=== PATIENT | male | born 1955 | race Two or more races ===

== ENCOUNTER 2021-02-27 16:47 | Inpatient (IN) | payer MEDICAID, MEDICARE, OTHER ==
[~2021-02-27] VITALS: Ht 180.3 cm; Wt 111.0 kg
[2021-02-27] MEDS ORDERED: normal saline 1000ml 1,000 ML IV ONE (17:35)
[2021-02-27] MEDS ORDERED: dexamethasone sod phosphate 10mg/ml inj IV STA (18:11)
[2021-02-27 18:36] LABS: BASOPHILS % (AUTO) 0.4 % (0-1); EOSINOPHILS % (AUTO) 0 % (0-6); HEMATOCRIT 44.4 % (42.0-52.0); HEMOGLOBIN 15.1 g/dl (14.0-17.9); LYMPHOCYTES # (AUTO) 1.3 X10'3 (1.1-4.8); LYMPHOCYTES % (AUTO) 13.1 % (21-51); MEAN CORPUSCULAR HEMOGLOBIN 29.4 PG (27.0-31.0); MEAN CORPUSCULAR HGB CONC 33.9 g/dL (33.0-36.5); MEAN CORPUSCULAR VOLUME 86.9 FL (78-98); MEAN PLATELET VOLUME 7.9 FL (7.4-10.4); MONOCYTES # (AUTO) 0.5 X10'3 (0-0.9); MONOCYTES % (AUTO) 4.9 % (2-12); NEUTROPHILS % (AUTO) 81.6 % (42-75); PLATELET COUNT 411 X10'3 (140-440); RED BLOOD COUNT 5.11 X10'6 (4.70-6.10); RED CELL DISTRIBUTION WIDTH 13.5 % (11.5-14.5); WHITE BLOOD COUNT 9.8 X10'3 (4.5-11.0)
[2021-02-27 19:22] LABS: ALANINE AMINOTRANSFERASE 48 U/L (12-78); ALBUMIN 3.2 G/DL (3.4-5.0); ALBUMIN/GLOBULIN RATIO 0.7 (1.1-1.5); ALKALINE PHOSPHATASE 77 IU/L (46-116); ANION GAP 14 (8-16); ASPARTATE AMINO TRANSFERASE 57 U/L (10-37); BILIRUBIN,TOTAL 0.7 MG/DL (0.1-1.0); BLOOD UREA NITROGEN 21 MG/DL (7-18); BUN/CREATININE RATIO 15.1 (5.4-32.0); CALCIUM 8.6 MG/DL (8.5-10.1); CHLORIDE 97 MMOL/L (99-107); CREATININE 1.39 MG/DL (0.60-1.10); GLUCOSE 100 MG/DL (70-104); POTASSIUM 3.2 MMOL/L (3.5-5.1); SODIUM 136 MMOL/L (135-145); TOTAL CARBON DIOXIDE 24.8 MMOL/L (24-32); TOTAL PROTEIN 7.5 G/DL (6.4-8.2); eGFR 51 ML/MIN
[2021-02-27 19:53] LABS: C-REACTIVE PROTEIN 10.28 MG/DL (0.0-0.5); LACTATE DEHYDROGENASE 373 U/L (85-227)
[2021-02-27 19:54] LABS: FERRITIN 1538 NG/ML (26-388)
[2021-02-27] MEDS: normal saline 1000ml 1,000 ML IV SCH (21:40)
[2021-02-27] MEDS ORDERED: mag hydrox/Alum hydrox/simeth 30ml oral suspension PO PRN (21:40)
[2021-02-27] MEDS ORDERED: magnesium hydroxide 30ml (MOM) UD suspension PO PRN (21:40)
[2021-02-27] MEDS ORDERED: ondansetron/PF 4mg/2ml inj IV PRN (21:40)
[2021-02-27] MEDS ORDERED: potassium Cl 40MEQ/1/2NS 520ml 520 ML IV PRN ×2 (21:40)
[2021-02-27] MEDS ORDERED: potassium Cl 20 mEq SR tablet PO PRN (21:40)
[2021-02-27] MEDS ORDERED: acetaminophen 325mg tablet PO PRN (21:40)
[2021-02-27] MEDS ORDERED: AZIT-63 PO (22:42)
[2021-02-27] MEDS ORDERED: ZOLP5TAB8 PO (22:43)
[2021-02-27] MEDS ORDERED: HYDR200T84 PO (22:43)
[2021-02-27] MEDS: potassium Cl 20 mEq SR tablet PO PRN (22:52)
--- NOTE | 2021-02-27 23:45 | NUR ---
PT ARRIVED TO 4022A. PT AMBULATED TO BED WITH 1P ASSIST SEEMS WEAK. PT HAS BEEN ORIENTED TO THE ROOM. VSS. RECEIVED REPORT FROM MINA VALERO PRIOR TO PT'S ARRIVAL.
[2021-02-28] MEDS: guaiFENesin 200 MG/10 ML oral syrup UD cup PO PRN ×3 (00:24→22:11)
[2021-02-28] MEDS: zolpidem 5mg tablet PO PRN ×2 (00:36→23:31)
[2021-02-28] MEDS: HYDROcodone/acetaminophen 10/325mg tab PO PRN ×2 (00:37→23:31)
[2021-02-28 01:00] VITALS: BP 148/92
[2021-02-28] MEDS: dexamethasone 4mg/ml inj IV SCH ×4 (02:29→19:52)
[2021-02-28] MEDS: potassium Cl 20 mEq SR tablet PO PRN (02:29)
--- NOTE | 2021-02-28 06:24 | NUR ---
Problems reprioritized. Patient report given, questions answered & plan of care reviewed with MINA RICKETTS.
--- NOTE | 2021-02-28 06:25 | NUR ---
Patient in room [facility]TH[facility] 4022. I have received report from Codi ENRIQUEZ and had the opportunity to ask questions and assume patient care.
[2021-02-28 06:53] VITALS: BP 143/93
[2021-02-28] MEDS: morphine ER 15mg tablet PO SCH ×2 (07:59→19:52)
[2021-02-28] MEDS: docusate sod 100mg capsule PO SCH ×2 (07:59→20:00)
[2021-02-28] MEDS: K and/or MAG REPLACEMENT MC SCH ×2 (08:00→20:00)
[2021-02-28] MEDS ORDERED: heparin, porcine 5000 units/ml vial SQ SCH (08:00)
[2021-02-28 08:23] LABS: BASOPHILS % (AUTO) 0.2 % (0-1); EOSINOPHILS % (AUTO) 0 % (0-6); HEMATOCRIT 41.9 % (42.0-52.0); HEMOGLOBIN 14.3 g/dl (14.0-17.9); LYMPHOCYTES # (AUTO) 0.7 X10'3 (1.1-4.8); LYMPHOCYTES % (AUTO) 10.8 % (21-51); MEAN CORPUSCULAR HEMOGLOBIN 29.3 PG (27.0-31.0); MEAN CORPUSCULAR HGB CONC 34.1 g/dL (33.0-36.5); MEAN PLATELET VOLUME 8.5 FL (7.4-10.4); MONOCYTES # (AUTO) 0.2 X10'3 (0-0.9); MONOCYTES % (AUTO) 3.3 % (2-12); NEUTROPHILS # (AUTO) 5.2 X10'3 (1.8-7.7); NEUTROPHILS % (AUTO) 85.7 % (42-75); PLATELET COUNT 449 X10'3 (140-440); RED BLOOD COUNT 4.87 X10'6 (4.70-6.10); RED CELL DISTRIBUTION WIDTH 13.5 % (11.5-14.5); WHITE BLOOD COUNT 6.1 X10'3 (4.5-11.0)
[2021-02-28 08:55] LABS: ALANINE AMINOTRANSFERASE 52 U/L (12-78); ALBUMIN 2.8 G/DL (3.4-5.0); ALBUMIN/GLOBULIN RATIO 0.7 (1.1-1.5); ALKALINE PHOSPHATASE 73 IU/L (46-116); ANION GAP 12 (8-16); ASPARTATE AMINO TRANSFERASE 52 U/L (10-37); BILIRUBIN,TOTAL 0.6 MG/DL (0.1-1.0); BLOOD UREA NITROGEN 21 MG/DL (7-18); BUN/CREATININE RATIO 26.3 (5.4-32.0); CALCIUM 8.4 MG/DL (8.5-10.1); CHLORIDE 102 MMOL/L (99-107); GLUCOSE 120 MG/DL (70-104); POTASSIUM 4.5 MMOL/L (3.5-5.1); SODIUM 139 MMOL/L (135-145); TOTAL CARBON DIOXIDE 24.6 MMOL/L (24-32); TOTAL PROTEIN 7.1 G/DL (6.4-8.2); eGFR > 90 ML/MIN
[2021-02-28 09:49] LABS: D-DIMER 0.57 MG/L FEU (0-0.50)
[2021-02-28 10:55] VITALS: BP 155/90
[2021-02-28] MEDS ORDERED: REMDESIVIR INJ 200 MG in normal saline 100ml IV soln 60 ML IV ONE (13:45)
[2021-02-28 14:00] VITALS: BP 130/77
[2021-02-28] MEDS: normal saline 1000ml 1,000 ML IV SCH ×2 (14:22→20:00)
--- NOTE | 2021-02-28 18:30 | NUR ---
Received report from Nuvia, assumed care of pt.
--- NOTE | 2021-02-28 18:37 | NUR ---
Problems reprioritized. Patient report given, questions answered & plan of care reviewed with Nedra ENRIQUEZ.
[2021-02-28 18:53] VITALS: BP 155/90
[2021-02-28] MEDS: enoxaparin 40mg/0.4ml syringe SUBCUT SCH (19:52)
[2021-02-28 22:00] VITALS: BP 123/66
[2021-03-01 02:00] VITALS: BP 119/44
[2021-03-01] MEDS: dexamethasone 4mg/ml inj IV SCH ×4 (02:26→21:31)
[2021-03-01] MEDS: HYDROcodone/acetaminophen 10/325mg tab PO PRN ×3 (04:56→23:48)
--- NOTE | 2021-03-01 06:32 | NUR ---
Report to Rodolfo ENRIQUEZ.
--- NOTE | 2021-03-01 06:41 | NUR ---
Patient in room [facility]TH[facility] 4022. I have received report from Shana ENRIQUEZ and had the opportunity to ask questions and assume patient care. Addendum: 03/01/21 at 0643 by Orlando Corea RN report received by Nedra Saldana RN
[2021-03-01 06:46] VITALS: BP 134/85
[2021-03-01] MEDS: morphine ER 15mg tablet PO SCH ×2 (07:42→21:31)
[2021-03-01] MEDS: REMDESIVIR INJ 100 MG in normal saline 100ml IV soln 80 ML IV SCH (07:43)
[2021-03-01] MEDS: enoxaparin 40mg/0.4ml syringe SUBCUT SCH ×2 (07:43→21:31)
[2021-03-01] MEDS: docusate sod 100mg capsule PO SCH ×2 (07:49→21:31)
[2021-03-01] MEDS: K and/or MAG REPLACEMENT MC SCH ×2 (08:00→20:00)
[2021-03-01 09:02] LABS: BASOPHILS % (AUTO) 0.1 % (0-1); EOSINOPHILS % (AUTO) 0 % (0-6); HEMATOCRIT 40.8 % (42.0-52.0); HEMOGLOBIN 13.6 g/dl (14.0-17.9); LYMPHOCYTES # (AUTO) 1.4 X10'3 (1.1-4.8); LYMPHOCYTES % (AUTO) 8.5 % (21-51); MEAN CORPUSCULAR HEMOGLOBIN 29.2 PG (27.0-31.0); MEAN CORPUSCULAR HGB CONC 33.3 g/dL (33.0-36.5); MEAN CORPUSCULAR VOLUME 87.6 FL (78-98); MEAN PLATELET VOLUME 8.8 FL (7.4-10.4); MONOCYTES # (AUTO) 0.8 X10'3 (0-0.9); MONOCYTES % (AUTO) 4.8 % (2-12); NEUTROPHILS # (AUTO) 14.6 X10'3 (1.8-7.7); NEUTROPHILS % (AUTO) 86.6 % (42-75); PLATELET COUNT 517 X10'3 (140-440); RED BLOOD COUNT 4.66 X10'6 (4.70-6.10); RED CELL DISTRIBUTION WIDTH 13.2 % (11.5-14.5); WHITE BLOOD COUNT 16.8 X10'3 (4.5-11.0)
[2021-03-01 09:15] LABS: ALANINE AMINOTRANSFERASE 46 U/L (12-78); ALBUMIN 2.7 G/DL (3.4-5.0); ALBUMIN/GLOBULIN RATIO 0.7 (1.1-1.5); ALKALINE PHOSPHATASE 70 IU/L (46-116); ANION GAP 13 (8-16); ASPARTATE AMINO TRANSFERASE 41 U/L (10-37); BILIRUBIN,TOTAL 0.4 MG/DL (0.1-1.0); BLOOD UREA NITROGEN 20 MG/DL (7-18); CALCIUM 8.5 MG/DL (8.5-10.1); CHLORIDE 107 MMOL/L (99-107); CREATININE 0.74 MG/DL (0.60-1.10); GLUCOSE 135 MG/DL (70-104); POTASSIUM 4.3 MMOL/L (3.5-5.1); SODIUM 143 MMOL/L (135-145); TOTAL CARBON DIOXIDE 23.5 MMOL/L (24-32); TOTAL PROTEIN 6.7 G/DL (6.4-8.2); eGFR > 90 ML/MIN
[2021-03-01 10:52] VITALS: BP 139/73
[2021-03-01] MEDS: guaiFENesin 200 MG/10 ML oral syrup UD cup PO PRN (11:36)
[2021-03-01] MEDS: normal saline 1000ml 1,000 ML IV SCH (14:03)
[2021-03-01 14:52] VITALS: BP 142/72
[2021-03-01 18:00] VITALS: BP 142/74
--- NOTE | 2021-03-01 18:10 | NUR ---
Problems reprioritized. Patient report given, questions answered & plan of care reviewed with Sarina ENRIQUEZ.
--- NOTE | 2021-03-01 18:31 | NUR ---
Patient in room [facility]TH[facility] 4022. I have received report from Rodolfo ENRIQUEZ and had the opportunity to ask questions and assume patient care.
[2021-03-01] MEDS: zolpidem 5mg tablet PO PRN (21:31)
[2021-03-01 22:00] VITALS: BP 139/82
[2021-03-02] MEDS: guaiFENesin 200 MG/10 ML oral syrup UD cup PO PRN ×3 (01:01→20:42)
[2021-03-02 01:52] VITALS: BP 148/81
[2021-03-02] MEDS: dexamethasone 4mg/ml inj IV SCH ×4 (02:00→20:20)
[2021-03-02 06:00] VITALS: BP 155/83
--- NOTE | 2021-03-02 06:23 | NUR ---
Problems reprioritized. Patient report given, questions answered & plan of care reviewed with Nuvia ENRIQUEZ. Addendum: 03/02/21 at 0626 by Sarina Solis RN Report given to Ruth ENRIQUEZ
[2021-03-02 07:46] LABS: BASOPHILS # (AUTO) 0.1 X10'3 (0-0.2); BASOPHILS % (AUTO) 0.7 % (0-1); EOSINOPHILS % (AUTO) 0 % (0-6); HEMATOCRIT 38.2 % (42.0-52.0); HEMOGLOBIN 12.8 g/dl (14.0-17.9); LYMPHOCYTES # (AUTO) 1.3 X10'3 (1.1-4.8); LYMPHOCYTES % (AUTO) 7.9 % (21-51); MEAN CORPUSCULAR HEMOGLOBIN 29.4 PG (27.0-31.0); MEAN CORPUSCULAR HGB CONC 33.6 g/dL (33.0-36.5); MEAN CORPUSCULAR VOLUME 87.3 FL (78-98); MEAN PLATELET VOLUME 8.1 FL (7.4-10.4); MONOCYTES # (AUTO) 0.6 X10'3 (0-0.9); MONOCYTES % (AUTO) 3.6 % (2-12); NEUTROPHILS # (AUTO) 14.9 X10'3 (1.8-7.7); NEUTROPHILS % (AUTO) 87.8 % (42-75); PLATELET COUNT 553 X10'3 (140-440); RED BLOOD COUNT 4.37 X10'6 (4.70-6.10); RED CELL DISTRIBUTION WIDTH 13.2 % (11.5-14.5)
[2021-03-02] MEDS: morphine ER 15mg tablet PO SCH ×2 (07:55→20:19)
[2021-03-02] MEDS: docusate sod 100mg capsule PO SCH ×2 (07:55→20:19)
[2021-03-02] MEDS: enoxaparin 40mg/0.4ml syringe SUBCUT SCH ×2 (07:56→20:19)
[2021-03-02] MEDS: REMDESIVIR INJ 100 MG in normal saline 100ml IV soln 80 ML IV SCH (07:58)
[2021-03-02] MEDS: K and/or MAG REPLACEMENT MC SCH ×2 (08:00→20:00)
[2021-03-02 08:14] LABS: ALANINE AMINOTRANSFERASE 52 U/L (12-78); ALBUMIN 2.7 G/DL (3.4-5.0); ALBUMIN/GLOBULIN RATIO 0.8 (1.1-1.5); ALKALINE PHOSPHATASE 66 IU/L (46-116); ANION GAP 10 (8-16); ASPARTATE AMINO TRANSFERASE 37 U/L (10-37); BILIRUBIN,TOTAL 0.4 MG/DL (0.1-1.0); BLOOD UREA NITROGEN 19 MG/DL (7-18); BUN/CREATININE RATIO 24.7 (5.4-32.0); CALCIUM 8.4 MG/DL (8.5-10.1); CHLORIDE 109 MMOL/L (99-107); CREATININE 0.77 MG/DL (0.60-1.10); GLUCOSE 137 MG/DL (70-104); POTASSIUM 4.5 MMOL/L (3.5-5.1); SODIUM 143 MMOL/L (135-145); TOTAL CARBON DIOXIDE 24.3 MMOL/L (24-32); TOTAL PROTEIN 6.1 G/DL (6.4-8.2); eGFR > 90 ML/MIN
[2021-03-02 10:00] VITALS: BP 166/79
[2021-03-02] MEDS: HYDROcodone/acetaminophen 10/325mg tab PO PRN ×2 (10:43→23:17)
[2021-03-02 14:00] VITALS: BP 147/70
[2021-03-02 14:09] LABS: D-DIMER 0.31 MG/L FEU (0-0.50)
[2021-03-02] MEDS: normal saline 1000ml 1,000 ML IV SCH (16:20)
[2021-03-02 18:00] VITALS: BP 162/77
--- NOTE | 2021-03-02 18:37 | NUR ---
Patient in room [facility]TH[facility] 4022. I have received report from Sahara ENRIQUEZ and had the opportunity to ask questions and assume patient care.
[2021-03-02] MEDS: zolpidem 5mg tablet PO PRN (20:19)
[2021-03-02 22:00] VITALS: BP 123/69
[2021-03-03] MEDS: normal saline 1000ml 1,000 ML IV SCH (01:51)
[2021-03-03] MEDS: dexamethasone 4mg/ml inj IV SCH ×4 (01:52→21:53)
[2021-03-03 02:00] VITALS: BP 159/84
--- NOTE | 2021-03-03 06:12 | NUR ---
Problems reprioritized. Patient report given, questions answered & plan of care reviewed with Sahara ENRIQUEZ.
[2021-03-03 06:28] VITALS: BP 135/75
[2021-03-03] MEDS: HYDROcodone/acetaminophen 10/325mg tab PO PRN ×4 (06:57→22:23)
[2021-03-03] MEDS: morphine ER 15mg tablet PO SCH ×2 (07:00→21:53)
[2021-03-03] MEDS: REMDESIVIR INJ 100 MG in normal saline 100ml IV soln 80 ML IV SCH (07:00)
[2021-03-03] MEDS: enoxaparin 40mg/0.4ml syringe SUBCUT SCH ×2 (07:00→21:54)
[2021-03-03] MEDS: docusate sod 100mg capsule PO SCH ×2 (07:00→21:53)
[2021-03-03] MEDS: K and/or MAG REPLACEMENT MC SCH ×2 (08:00→20:00)
[2021-03-03 08:21] LABS: EOSINOPHILS % (AUTO) 0 % (0-6); LYMPHOCYTES # (AUTO) 1.5 X10'3 (1.1-4.8); MEAN CORPUSCULAR VOLUME 87.7 FL (78-98); MONOCYTES # (AUTO) 0.7 X10'3 (0-0.9)
[2021-03-03 08:23] LABS: BASOPHILS # (AUTO) 0.2 X10'3 (0-0.2); BASOPHILS % (AUTO) 1.4 % (0-1); HEMATOCRIT 40.1 % (42.0-52.0); HEMOGLOBIN 13.5 g/dl (14.0-17.9); LYMPHOCYTES % (AUTO) 9.5 % (21-51); MEAN CORPUSCULAR HEMOGLOBIN 29.5 PG (27.0-31.0); MEAN CORPUSCULAR HGB CONC 33.7 g/dL (33.0-36.5); MEAN PLATELET VOLUME 8.4 FL (7.4-10.4); MONOCYTES % (AUTO) 4.4 % (2-12); NEUTROPHILS # (AUTO) 13.3 X10'3 (1.8-7.7); NEUTROPHILS % (AUTO) 84.7 % (42-75); PLATELET COUNT 553 X10'3 (140-440); RED BLOOD COUNT 4.57 X10'6 (4.70-6.10); RED CELL DISTRIBUTION WIDTH 13.1 % (11.5-14.5); WHITE BLOOD COUNT 15.7 X10'3 (4.5-11.0)
[2021-03-03 08:40] LABS: D-DIMER 0.36 MG/L FEU (0-0.50)
[2021-03-03 08:46] LABS: ALANINE AMINOTRANSFERASE 89 U/L (12-78); ALBUMIN 2.9 G/DL (3.4-5.0); ALBUMIN/GLOBULIN RATIO 0.8 (1.1-1.5); ALKALINE PHOSPHATASE 71 IU/L (46-116); ANION GAP 11 (8-16); ASPARTATE AMINO TRANSFERASE 60 U/L (10-37); BILIRUBIN,TOTAL 0.5 MG/DL (0.1-1.0); BLOOD UREA NITROGEN 15 MG/DL (7-18); CALCIUM 8.6 MG/DL (8.5-10.1); CHLORIDE 106 MMOL/L (99-107); CREATININE 0.75 MG/DL (0.60-1.10); GLUCOSE 130 MG/DL (70-104); POTASSIUM 4.4 MMOL/L (3.5-5.1); SODIUM 140 MMOL/L (135-145); TOTAL CARBON DIOXIDE 22.9 MMOL/L (24-32); TOTAL PROTEIN 6.5 G/DL (6.4-8.2); eGFR > 90 ML/MIN
[2021-03-03 09:27] LABS: PLATELET ESTIMATE INCREASED; TOTAL CELLS COUNTED 100
[2021-03-03 10:00] VITALS: BP 145/76
--- NOTE | 2021-03-03 11:31 | NUR ---
Initial: Pt admit for acute respiratory failure with hypoxia and COVID PNA. Currently on a regular diet documented with average 75-100% PO intake throughout LOS meeting estimated nutrient needs. LBM 02/27, receiving routine bowel care with additional PRN bowel care available. D/w dietary to send prunes with next meal to further assist with bowel regularity. Will continue to follow and monitor need for additional nutrition intervention. Recommendations: 1) Continue regular diet 2) Monitor need for additional protein 3) Routine bowel care 4) Weekly scaled weights Addendum: 03/03/21 at [address] Amended: Links added.
[2021-03-03 14:00] VITALS: BP 151/80
[2021-03-03 18:00] VITALS: BP 155/78
[2021-03-03 22:00] VITALS: BP 170/79
[2021-03-03] MEDS: zolpidem 5mg tablet PO PRN (22:23)
[2021-03-04] MEDS: normal saline 1000ml 1,000 ML IV SCH (01:40)
[2021-03-04 02:00] VITALS: BP 155/95
[2021-03-04] MEDS: HYDROcodone/acetaminophen 10/325mg tab PO PRN ×3 (05:47→22:33)
[2021-03-04 06:00] VITALS: BP 148/87
--- NOTE | 2021-03-04 06:50 | NUR ---
Patient in room [facility]TH[facility] 4022A. I have received report from MINA HOUGH and had the opportunity to ask questions and assume patient care.
[2021-03-04 07:42] LABS: BASOPHILS # (AUTO) 0.1 X10'3 (0-0.2); BASOPHILS % (AUTO) 0.5 % (0-1); EOSINOPHILS % (AUTO) 0 % (0-6); HEMATOCRIT 40.3 % (42.0-52.0); HEMOGLOBIN 13.5 g/dl (14.0-17.9); LYMPHOCYTES # (AUTO) 2.3 X10'3 (1.1-4.8); LYMPHOCYTES % (AUTO) 13.6 % (21-51); MEAN CORPUSCULAR HEMOGLOBIN 29.5 PG (27.0-31.0); MEAN CORPUSCULAR HGB CONC 33.5 g/dL (33.0-36.5); MEAN PLATELET VOLUME 8.9 FL (7.4-10.4); MONOCYTES # (AUTO) 0.7 X10'3 (0-0.9); NEUTROPHILS # (AUTO) 13.6 X10'3 (1.8-7.7); NEUTROPHILS % (AUTO) 81.9 % (42-75); PLATELET COUNT 542 X10'3 (140-440); RED BLOOD COUNT 4.58 X10'6 (4.70-6.10); RED CELL DISTRIBUTION WIDTH 13.2 % (11.5-14.5); WHITE BLOOD COUNT 16.6 X10'3 (4.5-11.0)
[2021-03-04] MEDS: K and/or MAG REPLACEMENT MC SCH ×2 (08:00→20:00)
[2021-03-04 08:01] LABS: ALANINE AMINOTRANSFERASE 105 U/L (12-78); ALBUMIN 2.8 G/DL (3.4-5.0); ALBUMIN/GLOBULIN RATIO 0.8 (1.1-1.5); ALKALINE PHOSPHATASE 66 IU/L (46-116); ANION GAP 9 (8-16); ASPARTATE AMINO TRANSFERASE 54 U/L (10-37); BILIRUBIN,TOTAL 0.5 MG/DL (0.1-1.0); BLOOD UREA NITROGEN 13 MG/DL (7-18); BUN/CREATININE RATIO 18.1 (5.4-32.0); C-REACTIVE PROTEIN 0.65 MG/DL (0.0-0.5); CALCIUM 8.5 MG/DL (8.5-10.1); CHLORIDE 107 MMOL/L (99-107); CREATININE 0.72 MG/DL (0.60-1.10); GLUCOSE 121 MG/DL (70-104); POTASSIUM 4.2 MMOL/L (3.5-5.1); SODIUM 142 MMOL/L (135-145); TOTAL CARBON DIOXIDE 25.8 MMOL/L (24-32); TOTAL PROTEIN 6.2 G/DL (6.4-8.2); eGFR > 90 ML/MIN
[2021-03-04 08:03] LABS: D-DIMER 0.38 MG/L FEU (0-0.50)
[2021-03-04 08:17] LABS: TOTAL CELLS COUNTED 100
[2021-03-04 08:18] LABS: LARGE PLATELETS FEW; PLATELET ESTIMATE INCREASED
[2021-03-04 08:19] LABS: POIKILOCYTOSIS FEW
[2021-03-04] MEDS: docusate sod 100mg capsule PO SCH ×2 (09:14→20:31)
[2021-03-04] MEDS: morphine ER 15mg tablet PO SCH ×2 (09:14→20:31)
[2021-03-04] MEDS: REMDESIVIR INJ 100 MG in normal saline 100ml IV soln 80 ML IV SCH (09:15)
[2021-03-04] MEDS: enoxaparin 40mg/0.4ml syringe SUBCUT SCH ×2 (09:15→20:32)
[2021-03-04] MEDS: dexamethasone 4mg/ml inj IV SCH ×2 (09:15→20:31)
[2021-03-04 10:00] VITALS: BP 130/65
[2021-03-04 14:00] VITALS: BP 148/87
[2021-03-04 18:00] VITALS: BP 146/93
--- NOTE | 2021-03-04 18:18 | NUR ---
Problems reprioritized. Patient report given, questions answered & plan of care reviewed with MINA HOUGH.
[2021-03-04] MEDS: zolpidem 5mg tablet PO PRN (22:33)
[2021-03-05] MEDS: normal saline 1000ml 1,000 ML IV SCH ×2 (01:33→11:00)
[2021-03-05 02:00] VITALS: BP 152/76
[2021-03-05] MEDS: HYDROcodone/acetaminophen 10/325mg tab PO PRN (02:32)
[2021-03-05 06:00] VITALS: BP 175/102
--- NOTE | 2021-03-05 06:30 | NUR ---
Problems reprioritized. Patient report given, questions answered & plan of care reviewed with RADHA ENRIQUEZ.
--- NOTE | 2021-03-05 06:31 | NUR ---
Patient in room [facility]TH[facility] 4022A. I have received report from MINA HOUGH and had the opportunity to ask questions and assume patient care.
[2021-03-05] MEDS: morphine ER 15mg tablet PO SCH (07:33)
[2021-03-05] MEDS: dexamethasone 4mg/ml inj IV SCH (07:33)
[2021-03-05] MEDS: docusate sod 100mg capsule PO SCH (07:33)
[2021-03-05] MEDS: enoxaparin 40mg/0.4ml syringe SUBCUT SCH (07:33)
[2021-03-05] MEDS: K and/or MAG REPLACEMENT MC SCH (08:00)
[2021-03-05 08:47] LABS: D-DIMER 0.44 MG/L FEU (0-0.50)
[2021-03-05 10:00] VITALS: BP 122/70
[2021-03-05] MEDS ORDERED: DEXA4TAB67 PO (12:04)
--- NOTE | 2021-03-05 12:11 | NUR ---
O2 Sat at rest on room air:__94_% If below 89%: Recovery O2 Sat at rest on ___LPM:___%:___% via (mask/nasal cannula, etc..) No further documentation is necessary. If O2 Sat did not drop below 89% on room air,ambulate patient on room air. O2 Sat while ambulating on room air:__93_% Recovery O2 Sat while ambulating on ___LPM:___% No further documentation is necessary. If patient does not drop below 89% while ambulating, he/she does not qualify for home O2.
--- NOTE | 2021-03-05 16:10 | NUR ---
Patient called to let me know that she did not pick the patient up because he did not want her to and threatened to call 911 on her. She called and said she gave him his bank cards and that he would call a cab. I called security down stairs and they were not aware of anyone making any seen. Patient insisted on waiting downstairs for an uber but said she would come to get him even though patient did not want her too. After that he refused the ride with her.
--- NOTE | 2021-03-05 16:55 | NUR ---
D/C INSTRUCTIONS GIVEN, QUESTIONS ANSWERED. BELONGINGS GATHERED BY PT AND SENT WITH PT. IV D/C'D, CANNULA INTACT, NO COMPLICATIONS. D/C'D PT IN STABLE CONDITION TO HOME. PT LEFT FLOOR AT 1515
== END 2021-03-05 15:15 | disposition home or self-care (01) | DRG 177 ==
LOC: ER 16:48 → UNDOADMIN 21:40 → ED HOLD 21:40 → ORTHO 4S 23:44
PROVIDERS: ADMIT Internal Medicine; ATTEND Family Medicine
PROC: XW033E5 Introduction of Remdesivir Anti-infective into Peripheral Vein, Percutaneous Approach, New Technology Group 5 (ICD-10-PCS; principal; 2021-02-28)
PROC: 5A0935A Assistance with Respiratory Ventilation, Less than 24 Consecutive Hours, High Flow/Velocity Cannula (ICD-10-PCS; 2021-03-01)
DX: U07.1 COVID-19 (principal); J12.82 Pneumonia due to coronavirus disease 2019; J96.01 Acute respiratory failure with hypoxia; N17.9 Acute kidney failure, unspecified; I10 Essential (primary) hypertension; E66.9 Obesity, unspecified; G89.4 Chronic pain syndrome; M25.569 Pain in unspecified knee; D72.829 Elevated white blood cell count, unspecified; T38.0X5A Adverse effect of glucocorticoids and synthetic analogues, initial encounter; M54.9 Dorsalgia, unspecified; M79.10 Myalgia, unspecified site; Z68.34 Body mass index [BMI] 34.0-34.9, adult
CPT/HCPCS: 36415; 71045; 80053; 82728; 83615; 84145; 85007; 85025; 85379; 85384; 86140; 87081; 96361; 96374; 99285; G0378; J1100; J1644; J1650; J7030